=== PATIENT | male | born 1975 | race Caucasian/White ===

== ENCOUNTER 2022-08-17 11:58 | Inpatient (IN) | payer BC, MEDICAID, SELFPAY ==
[2022-08-17 11:50] VITALS: BMI 25.7
[2022-08-17 12:08] VITALS: BP 134/101; PULSE 94; RESP 18; TEMP 36.6; O2SAT 90
[2022-08-17 14:00] VITALS: BP 148/88; PULSE 98; RESP 17; TEMP 36.6; O2SAT 92
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
[2022-08-17] MEDS: ondansetron 4 MG Tablet PO (18:13)
[2022-08-17 20:20] VITALS: BP 136/84; PULSE 111; RESP 18; TEMP 37.4; O2SAT 98
[2022-08-17] MEDS: acetaminophen 325 mg Tablet 650 MG PO (20:43)
[2022-08-17] MEDS: trazodone 150 mg Tablet PO (23:07)
[2022-08-17] MEDS: divalproex ER 250 mg Tablet (24H) PO (23:07)
[2022-08-17] MEDS: meloxicam 7.5 mg tablet PO (23:07)
[2022-08-17] MEDS: pregabalin 75 mg Capsule PO (23:08)
[2022-08-18 06:00] VITALS: BP 138/74; PULSE 76; RESP 17; TEMP 37; O2SAT 96
[2022-08-18] MEDS: meloxicam 7.5 mg tablet PO ×2 (09:06→17:54)
[2022-08-18] MEDS: fluoxetine 20 mg Capsule 40 MG PO (09:06)
[2022-08-18] MEDS: divalproex ER 250 mg Tablet (24H) PO ×2 (09:06→17:54)
[2022-08-18] MEDS: levETIRAcetam 500 mg Tablet 1500 MG PO ×2 (09:06→17:54)
[2022-08-18] MEDS: fludrocortisone 0.1 mg Tablet PO (09:06)
[2022-08-18] MEDS: pregabalin 75 mg Capsule PO ×3 (09:06→20:38)
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
[2022-08-18] MEDS: ondansetron 4 MG Tablet PO (14:45)
[2022-08-18 14:50] VITALS: BP 123/87; PULSE 115; RESP 16; TEMP 36.3; O2SAT 96
[2022-08-18 20:10] VITALS: BP 128/90; PULSE 97; RESP 16; TEMP 36.8; O2SAT 98
[2022-08-18] MEDS: trazodone 150 mg Tablet PO (20:38)
[2022-08-19 06:00] VITALS: BP 127/82; PULSE 108; RESP 18; TEMP 36.4; O2SAT 97
[2022-08-19] MEDS: divalproex ER 250 mg Tablet (24H) PO ×2 (09:35→20:45)
[2022-08-19] MEDS: fludrocortisone 0.1 mg Tablet PO (09:35)
[2022-08-19] MEDS: pregabalin 75 mg Capsule PO ×3 (09:35→20:45)
[2022-08-19] MEDS: fluoxetine 20 mg Capsule 40 MG PO (09:35)
[2022-08-19] MEDS: meloxicam 7.5 mg tablet PO ×2 (09:35→20:45)
[2022-08-19] MEDS: levETIRAcetam 500 mg Tablet 1500 MG PO ×2 (09:35→20:45)
--- NOTE | 2022-08-19 12:50 | P.NPUPN_ITS ---
Subjective NPU Subjective: Patient presented today continuing to tell a confusing story about what brings him here. Today he started asking about where certain medications were and seemed to be purposefully unclear about what medications were supposed to be still prescribed. The story from the outside hospital surrounding his pain medication being an issue seems to be surfacing now. We discussed the fact that we would need to verify what the intention of the previous prescribers were as he attempted to get the nurse to restart his Suboxone which he has not had for at least 2 weeks. He identified that he felt the Prozac was actually too strong and wanted to decrease. Mental Status Exam MSE Comments: This is a well-nourished well-developed white male in hospital scrubs with limited grooming and very limited eye contact. No abnormal movements except for significant psychomotor retardation. Cooperative with exam in mild to moderate distress. Speech was decreased rate and volume. Mood described as depressed, affect congruent. Thought process organized. Thought content: Patient endorsed suicidal but denied homicidal ideation, there were no delusions reported or noted, he denied any auditory or visual hallucinations. Attention and concentration were limited and memory was limited and much of history came from reflecting with him on what was in the chart, but none were formally tested. He is alert and oriented x3. Insight, judgment and impulse control are limited versus impaired. Vitals/I&O/Wt Last Vital Signs Temp 97.5 F L 08/19/22 06:00 Pulse 108 H 08/19/22 06:00 Resp 18 08/19/22 06:00 BP 127/82 08/19/22 06:00 Pulse Ox 97 08/19/22 06:00 O2 Del Method 08/18/22 14:50 A&P Assessment and plan (1) Partner relational problem: (2) Major depressive disorder, recurrent: (3) Chronic post-traumatic stress disorder (PTSD): Plan This is a 46-year-old white male with genetic loading for mental health and addiction issues with history of mental health and a addiction issues but currently presenting with partner relational problems and reports of depression and suicidality. 1. Continue current medications. We will explore decreasing Prozac and adding a mood stabilizer. 2. Continue every 15 minute checks for safety. 3. Encourage individual, group and milieu therapy. 4. Encourage sober living treatment after discharge at the highest level of care to which he is willing to commit. 5. Obtain collateral information given his limitations as a historian. Some concerns for malingering. Involuntary Hold Information 96 Hour Hold: 96 Hour Involuntary Admission: No Attestations NPU Medical Necessity Statement*: Inpatient hospitalization is medically necessary and the clinically appropriate intervention at this time. We will monitor/initiate medications and make changes as indicated. Likely length of stay 3-5 days. Coding Level of Care Code Acute Expansion Joint Builder for [facility] Fwd Diagnoses Partner relational problem Z63.0 Major depressive disorder, recurrent F33.9 Chronic post-traumatic stress disorder (PTSD) F43.12
[2022-08-19 14:00] VITALS: BP 120/88; PULSE 98; RESP 18; TEMP 36.6; O2SAT 98
[2022-08-19] MEDS: trazodone 150 mg Tablet PO (20:45)
[2022-08-19 20:55] VITALS: BP 125/86; PULSE 107; RESP 19; O2SAT 98
[2022-08-20 06:00] VITALS: RESP 15
[2022-08-20] MEDS: pregabalin 75 mg Capsule PO ×3 (08:21→21:17)
[2022-08-20] MEDS: levETIRAcetam 500 mg Tablet 1500 MG PO ×2 (08:22→21:16)
[2022-08-20] MEDS: fluoxetine 20 mg Capsule 40 MG PO (08:22)
[2022-08-20] MEDS: meloxicam 7.5 mg tablet PO ×2 (08:23→21:17)
[2022-08-20] MEDS: divalproex ER 250 mg Tablet (24H) PO ×2 (08:23→21:17)
[2022-08-20] MEDS: fludrocortisone 0.1 mg Tablet PO (09:53)
--- NOTE | 2022-08-20 11:44 | W.PM.NPUPNS ---
Subjective NPU Subjective: Patient presented today still somewhat focused on pain management however he could not create a clear story about exactly how the process occurred that he ended up out of the rehab facility and connected with the outpatient hospital before he was transferred here. We discussed the fact that we would need to get some understanding from them before we would be adding any new or additional pain medications. He continued to endorse depression. Mental Status Exam MSE Comments: This is a well-nourished well-developed white male in hospital scrubs with limited grooming and very limited eye contact. No abnormal movements except for significant psychomotor retardation. Cooperative with exam in mild to moderate distress. Speech was decreased rate and volume. Mood described as depressed, affect congruent. Thought process organized. Thought content: Patient endorsed suicidal but denied homicidal ideation, there were no delusions reported or noted, he denied any auditory or visual hallucinations. Attention and concentration were limited and memory was limited and much of history came from reflecting with him on what was in the chart, but none were formally tested. He is alert and oriented x3. Insight, judgment and impulse control are limited versus impaired. Vitals/I&O/Wt Last Vital Signs Temp 97.8 F 08/19/22 14:00 Pulse 107 H 08/19/22 20:55 Resp 15 08/20/22 06:00 BP 125/86 08/19/22 20:55 Pulse Ox 98 08/19/22 20:55 O2 Del Method 08/19/22 14:00 A&P Assessment and plan (1) Partner relational problem: (2) Major depressive disorder, recurrent: (3) Chronic post-traumatic stress disorder (PTSD): Plan This is a 46-year-old white male with genetic loading for mental health and addiction issues with history of mental health and a addiction issues but currently presenting with partner relational problems and reports of depression and suicidality. 1. Continue current medications. We will explore decreasing Prozac and adding a mood stabilizer. 2. Continue every 15 minute checks for safety. 3. Encourage individual, group and milieu therapy. 4. Encourage sober living treatment after discharge at the highest level of care to which he is willing to commit. 5. Obtain collateral information given his limitations as a historian. Some concerns for malingering. Involuntary Hold Information 96 Hour Hold: 96 Hour Involuntary Admission: No Attestations NPU Medical Necessity Statement*: Inpatient hospitalization is medically necessary and the clinically appropriate intervention at this time. We will monitor/initiate medications and make changes as indicated. Likely length of stay 2-4 days. Coding Level of Care Code Acute Oyster Bed Worker for Chg Fwd Diagnoses Partner relational problem Z63.0 Major depressive disorder, recurrent F33.9 Chronic post-traumatic stress disorder (PTSD) F43.12
[2022-08-20 14:00] VITALS: BP 120/92; PULSE 123; RESP 18; TEMP 36.6; O2SAT 100
[2022-08-20 21:07] VITALS: BP 125/82; PULSE 122; RESP 18; TEMP 36.6; O2SAT 100
[2022-08-20] MEDS: trazodone 150 mg Tablet PO (21:17)
[2022-08-21 06:00] VITALS: RESP 16; BMI 25.7
[2022-08-21] MEDS: pregabalin 75 mg Capsule PO ×3 (08:35→20:36)
[2022-08-21] MEDS: divalproex ER 250 mg Tablet (24H) PO ×2 (08:35→20:36)
[2022-08-21] MEDS: levETIRAcetam 500 mg Tablet 1500 MG PO ×2 (08:35→20:36)
[2022-08-21] MEDS: meloxicam 7.5 mg tablet PO ×2 (08:35→20:36)
[2022-08-21] MEDS: fluoxetine 20 mg Capsule 40 MG PO (08:35)
[2022-08-21] MEDS: fludrocortisone 0.1 mg Tablet PO (08:35)
--- NOTE | 2022-08-21 10:52 | P.NPUPN_ITS ---
Subjective NPU Subjective: Patient presented today continuing to be somatically preoccupied and hopeful for pain medication intervention. We are awaiting some response on the treatment providers from the rehab to get some sense of if there was a specific plan for where to go with his medication. Otherwise he did not express any concerns and seemed quite listless. Mental Status Exam MSE Comments: This is a well-nourished well-developed white male in hospital scrubs with limited grooming and very limited eye contact. No abnormal movements except for significant psychomotor retardation. Cooperative with exam in mild to moderate distress. Speech was decreased rate and volume. Mood described as depressed, affect congruent. Thought process organized. Thought content: Patient endorsed suicidal but denied homicidal ideation, there were no delusions reported or noted, he denied any auditory or visual hallucinations. Attention and concentration were limited and memory was limited and much of history came from reflecting with him on what was in the chart, but none were formally tested. He is alert and oriented x3. Insight, judgment and impulse control are limited versus impaired. Vitals/I&O/Wt Last Vital Signs Temp 97.8 F 08/20/22 21:07 Pulse 122 H 08/20/22 21:07 Resp 16 08/21/22 06:00 BP 125/82 08/20/22 21:07 Pulse Ox 100 08/20/22 21:07 O2 Del Method 08/20/22 14:00 Weight last 48 hrs Weight 86.183 kg A&P Assessment and plan (1) Partner relational problem: (2) Major depressive disorder, recurrent: (3) Chronic post-traumatic stress disorder (PTSD): Plan This is a 46-year-old white male with genetic loading for mental health and addiction issues with history of mental health and a addiction issues but currently presenting with partner relational problems and reports of depression and suicidality. 1. Continue current medications. We will explore decreasing Prozac and adding a mood stabilizer. 2. Continue every 15 minute checks for safety. 3. Encourage individual, group and milieu therapy. 4. Encourage sober living treatment after discharge at the highest level of care to which he is willing to commit. 5. Obtain collateral information given his limitations as a historian. Some concerns for malingering. Involuntary Hold Information 96 Hour Hold: 96 Hour Involuntary Admission: No Attestations NPU Medical Necessity Statement*: Inpatient hospitalization is medically necessary and the clinically appropriate intervention at this time. We will monitor/initiate medications and make changes as indicated. Likely length of stay 1-3 days. Coding Level of Care Code Acute Housekeeper Child Care for Chg Fwd Diagnoses Partner relational problem Z63.0 Major depressive disorder, recurrent F33.9 Chronic post-traumatic stress disorder (PTSD) F43.12
[2022-08-21 14:00] VITALS: BP 118/80; PULSE 107; RESP 18; TEMP 36.6; O2SAT 100
[2022-08-21 20:07] VITALS: BP 125/86; PULSE 112; RESP 16; TEMP 37.1; O2SAT 97
[2022-08-21] MEDS: trazodone 150 mg Tablet PO (20:35)
[2022-08-22 06:00] VITALS: BP 129/88; PULSE 112; RESP 18; TEMP 36.9; O2SAT 98
[2022-08-22] MEDS: acetaminophen 325 mg Tablet 650 MG PO (06:30)
--- NOTE | 2022-08-22 07:33 | PC.NURSE ---
shift assessment pt up to nurse station, pleasant affect, asked if he was hallucinating he stated well I'm not really sure .... asked if he was Suicidal pt stated not yet
[2022-08-22] MEDS: pregabalin 75 mg Capsule PO ×3 (07:58→20:11)
[2022-08-22] MEDS: meloxicam 7.5 mg tablet PO ×2 (07:58→20:10)
[2022-08-22] MEDS: fludrocortisone 0.1 mg Tablet PO (07:58)
[2022-08-22] MEDS: divalproex ER 250 mg Tablet (24H) PO ×2 (07:58→20:10)
[2022-08-22] MEDS: levETIRAcetam 500 mg Tablet 1500 MG PO ×2 (07:59→20:11)
[2022-08-22] MEDS: fluoxetine 20 mg Capsule 40 MG PO (07:59)
[2022-08-22] MEDS: ondansetron 4 MG Tablet PO (08:05)
--- NOTE | 2022-08-22 08:06 | PC.NURSE ---
PRN ZOFRAN 4 MG GIVEN PO PER PT C/O NAUSEA
--- NOTE | 2022-08-22 10:01 | PC.NURSE ---
contact info brother, madeline serra,
[2022-08-22] MEDS: ibuprofen 600 mg Tablet PO (10:26)
[2022-08-22 14:00] VITALS: BP 128/91; PULSE 100; RESP 17; TEMP 36.6; O2SAT 100
--- NOTE | 2022-08-22 18:00 | P.NPUPN_ITS ---
Subjective NPU Subjective: Patient presented today being much more open to conversation. He was able to have a seemingly more honest conversation about the role that addiction has played in his current circumstances. He endorsed not wanting anything from us that was addictive. We talked about figuring out the Suboxone situation but he could not recall the name of his clinic. We discussed our willingness to assist him with a bridge prescription if we were able to connect with his outpatient provider and understand what the plan was moving forward. Otherwise he is managing his pain acceptably. Mental Status Exam MSE Comments: This is a well-nourished well-developed white male in hospital scrubs with limited grooming and very limited eye contact. No abnormal movements except for mild psychomotor retardation. Cooperative with exam in mild distress. Speech was decreased rate and volume. Mood described as a little better, affect congruent. Thought process organized. Thought content: Patient endorsed suicidal but denied homicidal ideation, there were no delusions reported or noted, he denied any auditory or visual hallucinations. Attention and concentration were limited and memory was more reliable, but none were formally tested. He is alert and oriented x3. Insight, judgment and impulse control are limited. Vitals/I&O/Wt Last Vital Signs Temp 98.8 F 08/22/22 20:42 Pulse 100 08/22/22 20:42 Resp 18 08/22/22 20:42 BP 143/87 08/22/22 20:42 Pulse Ox 99 08/22/22 20:42 O2 Del Method 08/22/22 06:00 A&P Assessment and plan (1) Partner relational problem: (2) Major depressive disorder, recurrent: (3) Chronic post-traumatic stress disorder (PTSD): Plan This is a 46-year-old white male with genetic loading for mental health and addiction issues with history of mental health and a addiction issues but currently presenting with partner relational problems and reports of depression and suicidality. 1. Continue current medications. We will explore decreasing Prozac and adding a mood stabilizer. 2. Continue every 15 minute checks for safety. 3. Encourage individual, group and milieu therapy. 4. Encourage sober living treatment after discharge at the highest level of care to which he is willing to commit. 5. Obtain collateral information given his limitations as a historian. Some concerns for malingering. Involuntary Hold Information 96 Hour Hold: 96 Hour Involuntary Admission: No Attestations NPU Medical Necessity Statement*: Inpatient hospitalization is medically necessary and the clinically appropriate intervention at this time. We will monitor/initiate medications and make changes as indicated. Likely length of stay 1-3 days. Coding Level of Care Code Acute Ship Design Teacher for Chg Fwd Diagnoses Partner relational problem Z63.0 Major depressive disorder, recurrent F33.9 Chronic post-traumatic stress disorder (PTSD) F43.12
[2022-08-22] MEDS: trazodone 150 mg Tablet PO (20:11)
[2022-08-22 20:42] VITALS: BP 143/87; PULSE 100; RESP 18; TEMP 37.1; O2SAT 99
[2022-08-23] MEDS: ibuprofen 600 mg Tablet PO ×2 (05:50→12:11)
[2022-08-23] MEDS: hyDROXYzine 25 mg Capsule 50 MG PO (05:50)
[2022-08-23 06:00] VITALS: BP 128/81; PULSE 80; RESP 16; TEMP 37.2; O2SAT 92
[2022-08-23] MEDS: divalproex ER 250 mg Tablet (24H) PO ×2 (08:53→20:31)
[2022-08-23] MEDS: fludrocortisone 0.1 mg Tablet PO (08:53)
[2022-08-23] MEDS: pregabalin 75 mg Capsule PO ×3 (08:53→20:31)
[2022-08-23] MEDS: meloxicam 7.5 mg tablet PO ×2 (08:53→20:31)
[2022-08-23] MEDS: levETIRAcetam 500 mg Tablet 1500 MG PO ×2 (08:54→20:31)
[2022-08-23] MEDS: fluoxetine 20 mg Capsule 40 MG PO (08:54)
--- NOTE | 2022-08-23 10:36 | P.NPUPN_ITS ---
Subjective NPU Subjective: Patient presented today reporting that he is open to returning to [facility]. We were able to reach out to his provider and identify that she was comfortable with continuing his Suboxone. We agreed we would restart that and then give him a bridge prescription to get to his appointment that was pushed back to 08/30/2022. Is working with the social work team to determine a reasonable discharge plan given his reportedly being homeless with a goal of discharge in the next 48 hours. Mental Status Exam MSE Comments: This is a well-nourished well-developed white male in hospital scrubs with limited grooming and very limited eye contact. No abnormal movements except for mild psychomotor retardation. Cooperative with exam in mild distress. Speech was decreased rate and volume. Mood described as better, affect congruent. Thought process organized. Thought content: Patient endorsed suicidal but denied homicidal ideation, there were no delusions reported or noted, he denied any auditory or visual hallucinations. Attention and concentration were limited and memory was more reliable, but none were formally tested. He is alert and oriented x3. Insight, judgment and impulse control are limited. Vitals/I&O/Wt Last Vital Signs Temp 98.9 F 08/23/22 06:00 Pulse 80 08/23/22 06:00 Resp 16 08/23/22 06:00 BP 128/81 08/23/22 06:00 Pulse Ox 92 08/23/22 06:00 O2 Del Method 08/23/22 06:00 A&P Assessment and plan (1) Partner relational problem: (2) Major depressive disorder, recurrent: (3) Chronic post-traumatic stress disorder (PTSD): Plan This is a 46-year-old white male with genetic loading for mental health and addiction issues with history of mental health and a addiction issues but currently presenting with partner relational problems and reports of depression and suicidality. 1. Continue current medications. We will restart Suboxone 8/2 mg sublingual twice daily. 2. Continue every 15 minute checks for safety. 3. Encourage individual, group and milieu therapy. 4. Encourage sober living treatment after discharge at the highest level of care to which he is willing to commit. 5. Obtain collateral information given his limitations as a historian. Some co ncerns for malingering. Involuntary Hold Information 96 Hour Hold: 96 Hour Involuntary Admission: No Attestations NPU Medical Necessity Statement*: Inpatient hospitalization is medically necessary and the clinically appropriate intervention at this time. We will monitor/initiate medications and make changes as indicated. Likely length of stay 1-2 days. Coding Level of Care Code Acute Bunghole Borer for Chg Fwd Diagnoses Partner relational problem Z63.0 Major depressive disorder, recurrent F33.9 Chronic post-traumatic stress disorder (PTSD) F43.12
--- NOTE | 2022-08-23 12:25 | PC.NURSE ---
Addendum entered by Daniella Vargas RN 08/23/22 17:34: Pt's appointment with this physician scheduled for today was changed by CAROL Alva. Pt now has an appointment for 08/30/22 at 12pm. Original Note: Contacted Aisha at [facility] ([phone]) to verify what prescriptions and dosages Dr. Felipe Coto had prescribed for the patient. On July 14, pt received scripts for Suboxone 8-2mg one film under the tongue BID #48. Aisha said the pt should be out. Other prescriptions included Trazodone 150 mg po q hs and Fluoxetine 10 mg, 1.5 tabs q AM and one tab q PM. Dr. Jones notified.
[2022-08-23 13:59] VITALS: BP 141/94; PULSE 99; RESP 18; TEMP 36.7; O2SAT 99
--- NOTE | 2022-08-23 15:59 | PC.OT ---
OTR DISCUSSED PATIENT AND REVIEWED JORDAN NOTE WITH JORDAN. PATIENT WILL CONTINUE TO REQUIRE ASSISTANCE WITH DONNING/DOFFING OF BACK BRACE/CLAM SHELL. DISCUSSED WITH PATIENT THIS MORNING THE IMPORTANCE OF WEARING THE BRACE DUE TO FRACTURE AND HEALING NEEDED. PATIENT WILL BE LEFT IN CARE OF NURSING STAFF FOR ASSISTANCE WITH DONNING/DOFFING OF THIS BRACE.
[2022-08-23] MEDS: buprenorphine-naloxone 4-1 mg Film 2 EACH SUBLINGUAL (16:51)
[2022-08-23] MEDS: trazodone 150 mg Tablet PO (20:31)
[2022-08-23 22:00] VITALS: BP 126/89; PULSE 105; RESP 18; TEMP 37.1; O2SAT 97
[2022-08-24] MEDS: ibuprofen 600 mg Tablet PO (04:18)
[2022-08-24 06:00] VITALS: BP 150/99; PULSE 104; RESP 18; TEMP 36.7; O2SAT 98
[2022-08-24] MEDS: buprenorphine-naloxone 4-1 mg Film 2 EACH SUBLINGUAL ×2 (08:31→18:46)
[2022-08-24] MEDS: fluoxetine 20 mg Capsule 40 MG PO (08:32)
[2022-08-24] MEDS: divalproex ER 250 mg Tablet (24H) PO ×2 (08:32→20:28)
[2022-08-24] MEDS: fludrocortisone 0.1 mg Tablet PO (08:32)
[2022-08-24] MEDS: levETIRAcetam 500 mg Tablet 1500 MG PO ×2 (08:32→20:27)
[2022-08-24] MEDS: pregabalin 75 mg Capsule PO ×3 (08:32→20:27)
[2022-08-24] MEDS: meloxicam 7.5 mg tablet PO ×2 (08:33→20:27)
[2022-08-24] MEDS: tizanidine 4 mg Tablet 2 MG PO (08:33)
[2022-08-24 14:00] VITALS: BP 113/82; PULSE 86; RESP 18; TEMP 36.6; O2SAT 97
--- NOTE | 2022-08-24 15:13 | P.NPUPN_ITS ---
Subjective NPU Subjective: Patient presented today reporting that things are going a little better. He is reaching out to his family and working the social working to be able to identify a ride for the next 48 hours. He vacillated between wanting to leave immediately and likely Monday but that seem to be partially related to the ride situation. Also he seemed to be somewhat unsure about his living situation. Otherwise identified an openness to work with us on getting the discharge arranged. Mental Status Exam MSE Comments: This is a well-nourished well-developed white male in hospital scrubs with limited grooming and very limited eye contact. No abnormal movements except for mild psychomotor retardation. Cooperative with exam in mild distress. Speech was decreased rate and volume. Mood described as better, affect congruent. Thought process organized. Thought content: Patient endorsed suicidal but denied homicidal ideation, there were no delusions reported or noted, he denied any auditory or visual hallucinations. Attention and concentration were limited and memory was more reliable, but none were formally tested. He is alert and oriented x3. Insight, judgment and impulse control are limited. Vitals/I&O/Wt Last Vital Signs Temp 98 F 08/24/22 14:00 Pulse 86 08/24/22 14:00 Resp 18 08/24/22 14:00 BP 113/82 08/24/22 14:00 Pulse Ox 97 08/24/22 14:00 O2 Del Method 08/24/22 14:00 A&P Assessment and plan (1) Partner relational problem: (2) Major depressive disorder, recurrent: (3) Chronic post-traumatic stress disorder (PTSD): Plan This is a 46-year-old white male with genetic loading for mental health and addiction issues with history of mental health and a addiction issues but currently presenting with partner relational problems and reports of depression and suicidality. 1. Continue current medications. We restarted Suboxone 8/2 mg sublingual twice daily. 2. Continue every 15 minute checks for safety. 3. Encourage individual, group and milieu therapy. 4. Encourage sober living treatment after discharge at the highest level of care to which he is willing to commit. 5. Some concerns for malingering. Plan for discharge by Monday. Involuntary Hold Information 96 Hour Hold: 96 Hour Involuntary Admission: No Attestations NPU Medical Necessity Statement*: Inpatient hospitalization is medically necessary and the clinically appropriate intervention at this time. We will monitor /initiate medications and make changes as indicated. Likely length of stay 1-2 days. Tentative discharge tomorrow. Coding Level of Care Code Acute Resource Manager Forester for Chg Fwd Diagnoses Partner relational problem Z63.0 Major depressive disorder, recurrent F33.9 Chronic post-traumatic stress disorder (PTSD) F43.12
[2022-08-24] MEDS: acetaminophen 325 mg Tablet 650 MG PO (15:37)
[2022-08-24] MEDS: trazodone 150 mg Tablet PO (20:28)
[2022-08-24 22:00] VITALS: BP 131/86; PULSE 73; RESP 18; TEMP 36.7; O2SAT 100
[2022-08-25 06:00] VITALS: BP 152/94; PULSE 110; RESP 18; TEMP 36.5; O2SAT 97
[2022-08-25] MEDS: levETIRAcetam 500 mg Tablet 1500 MG PO (09:06)
[2022-08-25] MEDS: fluoxetine 20 mg Capsule 40 MG PO (09:07)
[2022-08-25] MEDS: buprenorphine-naloxone 4-1 mg Film 2 EACH SUBLINGUAL ×2 (09:07→17:05)
[2022-08-25] MEDS: pregabalin 75 mg Capsule PO ×2 (09:07→14:19)
[2022-08-25] MEDS: divalproex ER 250 mg Tablet (24H) PO (09:07)
[2022-08-25] MEDS: fludrocortisone 0.1 mg Tablet PO (09:07)
[2022-08-25] MEDS: meloxicam 7.5 mg tablet PO (09:07)
[2022-08-25] MEDS: acetaminophen 325 mg Tablet 650 MG PO (12:08)
[2022-08-25 14:00] VITALS: BP 128/87; PULSE 87; RESP 20; TEMP 36.6; O2SAT 98
[2022-08-25 15:54] VITALS: BP 128/87; PULSE 87; RESP 20; TEMP 36.6; O2SAT 98
--- NOTE | 2022-08-25 16:34 | P.NPUDS_ITS ---
Diagnoses at Discharge Discharge Diagnosis (1) Partner relational problem: Status: Acute (2) Major depressive disorder, recurrent: Status: Acute (3) Chronic post-traumatic stress disorder (PTSD): Status: Acute Reason for Visit Reason for Visit: SI Brief History: Eligio Salmeron is a 46 year old male who presented to [facility] endorsing suicidal ideation, command hallucinations and a recent discontinuation of narcotic medications.? He was seen by their center for mental wellness and noted not to be safe for discharge.? Incident in the emergency department where he took out part of his phone and was attempting to stab himself with it causing a superficial abrasion to his neck and it did cause some bleeding.? He was also noted to have some abrasions to his antecubital fossa on the right side but also caused some bleeding that stopped spontaneously.? The outside hospital labs were significant for low sodium and potassium and Depakote level 26.4 low prealbumin and negative COVID test, unremarkable UA an affidavit was written and he was transferred to [facility] and admitted to the neuropsychiatric unit for definitive treatment of those issues.? The patient presents today reporting that he has had a tough time recently.? Reports that he has multiple allergies including penicillin that he takes multiple medications some of which for his seizure disorder but also limited medications for mental health challenges and also has been on Suboxone.? He reports recent fall related to pain in possible seizure activity.? Though that was not noted in outpatient documentation.? He was currently on rehab for a recent L3 compression fracture and the day before he presented to the out side Hospital his narcotic medications were discontinued but he reports he is unsure why he denies historical psychotic symptoms or suicidal or homicidal thinking but does endorse that he has had outpatient services at [facility] and he has had inpatient hospitalization in the past but was not clear about that.? There is some conversation about narcotics not being stopped but being changed from every 4 hours to every 6 hours but he was not a very good historian.? It was difficult to ascertain when he was discharged from the rehab because he was often talking softly and his story did not follow with clarity we discussed that we would evaluate his medications and restart those that he is currently on and that we would review his psychiatric medications and hopefully make appropriate changes.? We discussed the fact that we would not be adding any pain medications that were not already being prescribed. Psychiatric history: As above. Substance abuse history: He denied alcohol, but did endorse some marijuana use significant tobacco use. Family history: He did endorse family history of mental health and addiction issues. Psychosocial history: He endorsed having a fallout with his significant other?currently lives with his significant another in a home.? 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 He endorses graduating from high school but having some college. Legal history: He denied any significant legal challenges or incarcerations other than a couple of days. Medical history: Endorses a history of compression fracture of L3 and seizures. Hospital Course Hospital Course He slowly acclimated to the individual, group and milieu therapies provided. It appeared as if he was very focused on pain related to recent spinal fracture. He was suicidal at admission and that resolved. We assisted him in getting back with [facility] and his suboxone provider and provided a bridge prescription to the appointment next week. He tolerated these medications and had improvement during his stay. He was able to contract for safety outside hospital prior to discharge. At the outside hospitalization, patient had routine laboratory studies which were within normal limits except for few outliers. Additionally there was a general medical evaluation which was also within normal limits and revealed no new acute processes. Discharge Summary: At the time of discharge, lethality and psychosis were denied. Mood and anxiety were well managed. Patient endorsed a plan to follow-up with the aftercare recommendations of the treatment team. Patient was evaluated and deemed to be absent credible lethality, and had achieved the maximum benefit from an inpatient hospitalization, so was discharged. Involuntary Hold Information 96 Hour Hold: 96 Hour Involuntary Admission: No Mental Status Exam MSE Comments: This is a well-nourished well-developed white male in hospital scrubs with limited grooming and very limited eye contact. No abnormal movements except for mild psychomotor retardation. Cooperative with exam in no acute distress. Speech was decreased rate and volume. Mood described as better, affect congruent. Thought process organized. Thought content: Patient endorsed suicidal but denied homicidal ideation, there were no delusions reported or noted, he denied any auditory or visual hallucinations. Attention and concentration were limited and memory was more reliable, but none were formally tested. He is alert and oriented x3. Insight, judgment and impulse control are limited. Discharge Data Vitals: Last Vital Signs Temp 97.8 F 08/25/22 15:54 Pulse 87 08/25/22 15:54 Resp 20 H 08/25/22 15:54 BP 128/87 08/25/22 15:54 Pulse Ox 98 08/25/22 15:54 O2 Del Method 08/25/22 14:00 Discharge Plan Discharge Patient Disposition: Home Condition: Stable Prescriptions: New buprenorphine-naloxone 8-2 mg film 1 film sublingual BID 6 Days Qty: 12 0RF Continued Keppra 1,000 mg tablet 1,500 mg PO BID Depakote ER 250 mg tablet extended release 24 hr 250 mg PO BID fludrocortisone 0.1 mg tablet 0.1 mg PO DAILY fluoxetine 40 mg capsule 40 mg PO DAILY meloxicam 7.5 mg tablet 7.5 mg PO BID pregabalin 75 mg capsule 75 mg PO TID tizanidine 4 mg tablet 2 mg PO Q4-5H PRN (Reason: Muscle Spasm) trazodone 150 mg tablet 150 mg PO BEDTIME 30 Days Qty: 30 1RF Discharge Orders: Discharge Order (Routine); Ordered 08/25/22 Ordered By: Severo Jones Referrals: [facility]...Eri Carney M.D [Other] - 09/20/22 4:00 pm (Follow up. ) [facility] [Other] - 08/30/22 12:00 pm (Appointment is with Psychiatrist Felipe Macdonald. ) [facility]) [facility] [Other] [facility]- [facility] Sherman Wayne [Other] - 08/29/22 1:00 pm (Follow up.) Discharge Diet: Regular Discharge Activity: Resume usual activity Patient Instructions: Depression (GEN), Post Traumatic Stress Disorder (DC), Opioid Safety Discharge Attestations NPU Time Spent in Discharge Care*: less than 30 min Specific Discharge Activities: Specific discharge activities: educating patient, discussing with counter caser/social workers/dc planners, documenting/other paperwork and evaluating patient/reviewing data Coding Level of Care Code Acute Chg FW DC note Diagnoses Partner relational problem Z63.0 Major depressive disorder, recurrent F33.9 Chronic post-traumatic stress disorder (PTSD) F43.12
== END 2022-08-25 17:56 | disposition home or self-care (01) | DRG 885 ==
PROVIDERS: Admitting Provider Psychiatry & Neurology Psychiatry; Visit Provider Psychiatry & Neurology Psychiatry
DX: F33.9 Major depressive disorder, recurrent, unspecified (principal); R45.851 Suicidal ideations; Z63.0 Problems in relationship with spouse or partner; F43.12 Post-traumatic stress disorder, chronic; Z88.0 Allergy status to penicillin; Z79.891 Long term (current) use of opiate analgesic
CPT/HCPCS: 97150; 97165; 97535; J0573; Q0162